=== PATIENT | female | born 1960 | race Caucasian/White ===

== ENCOUNTER 2017-09-21 19:11 | Emergency (ER) | payer OTHER ==
[~2017-09-21] VITALS: Ht 165.1 cm; Wt 113.4 kg
[2017-09-21] MEDS ORDERED: NEURONTIN300 MG PO ×2 (21:12)
[2017-09-21] MEDS ORDERED: CARBAMAZEPINE400 M1 PO ×2 (21:13)
[2017-09-21] MEDS ORDERED: LEVO-T50 MCG PO ×2 (21:14)
[2017-09-21] MEDS ORDERED: NORCO 5-325 TA1 EACH PO ×2 (21:16)
[2017-09-22] MEDS ORDERED: LIOTHYRONINE SO5 MCG PO ×2 (16:39)
== END 2017-09-21 21:30 | disposition home or self-care (01) ==
LOC: ED 19:11
DX: N13.2 Hydronephrosis with renal and ureteral calculous obstruction (principal); Z79.899 Other long term (current) drug therapy
CPT/HCPCS: 74176; 80053; 81001; 85025; 96374; 96375; 99284; J1885; J2405

== ENCOUNTER 2017-09-22 16:19 | Day surgery (SDC) | payer OTHER ==
[~2017-09-22] VITALS: Ht 165.1 cm; Wt 113.4 kg
[~2017-09-22 16:19] MED LIST: CARBAMAZEPINE400 M1 PO; LEVO-T50 MCG PO; NEURONTIN300 MG PO; NORCO 5-325 TA1 EACH PO
[2017-09-22] MEDS ORDERED: LIOTHYRONINE SO5 MCG PO ×2 (16:39)
--- NOTE | 2017-09-22 16:56 | NUR ---
RN IN ROOM. NO OTHER NEEDS AT THIS TIME.
--- NOTE | 2017-09-22 18:02 | NUR ---
PT ADMITTED. TRIED SEVERAL TIMES BY SEVERAL RN'S TO START AN IV. JUAN MORRELL EVENTUALLY GOT ONE IN. PT TOLERATED WELL. WIPE DOWN DONE. LR HANGING. SCDS IN PLACE.
--- NOTE | 2017-09-22 19:20 | NUR ---
REPORT RECEIVED FROM DENNISE JOY AND SN POWELL. IN ROOM. PT IN SURGERY AT THIS TIME.
--- NOTE | 2017-09-22 19:40 | NUR ---
09/22/171939 Georgia Waldron 193-PATIENT ARRIVED TO PACU ON 6L MASK O2 SAT 100% SR. RR EVEN. PATIENT REACTIVE EYES OPEN DOZES BACK TO SLEEP. STEPHANIE PAD TO VAGINA CDI
--- NOTE | 2017-09-22 20:30 | NUR ---
PT ARRIVES FROM PACU WITH DENNISE HALEY. PT ABLE TO TRANSFER FROM STRETCHER TO HOSPITAL BED. RATES PAIN 1-3 "BURNING", PROGRAM MANAGER SLP EXPLAINS THIS MAY OCCUR FOR A 24HRS POST OP. DENIES NAUSEA. PT IS A AND O X4, IN ROOM. PT GIVEN WARM BLANKET, ICE WATER, JELLO. VITALS STABLE AT THSI TIME 94% ON RA, BP 126/67,AFEBRILE, HR 71. RN PRIETO IN ROOM FOR POST OP ASSESSMENT, TO ADMINISTER IV TORADOL.
--- NOTE | 2017-09-22 20:54 | NUR ---
medicated wtih toradol 30mg iv c/p 07/17 pain
--- NOTE | 2017-09-22 22:49 | NUR ---
2200 - up to brp, voided, reddish colored urine. back to bed, tolerated well
--- NOTE | 2017-09-22 22:49 | NUR ---
2225 - dc paperwork instructions given to pt, medicated with 1 percocet. iv dc'd tip intact. 2x2 in place. all questions about pot op care given to pt stated undestanding
--- NOTE | 2017-09-22 22:51 | NUR ---
2249 - pt voided more reddish colored urine, DC home via w/c acompanied by and COMPUTER GRAPHIC ARTIST, dc home with written instructions Rx and appointment with for Wednesday at 11am. No c/o pain,stable for dc.
--- NOTE | 2017-09-27 07:28 | OR ---
[facility] [address] [place], [place] [address] Signed DATE OF OPERATION: 09/22/2017 SURGEON: Seferino Roper MD PREOPERATIVE DIAGNOSIS: Left ureterolithiasis. POSTOPERATIVE DIAGNOSIS: Left ureterolithiasis. PROCEDURES: 1. Diagnostic cystoscopy with left retrograde pyelogram. 2. Left flexible nephroureteroscopy with laser lithotripsy and basket extraction of stones. 3. Insertion of an indwelling left ureteral stent. ANESTHESIA: General. ESTIMATED BLOOD LOSS: Minimal. COMPLICATIONS: None. SPECIMENS: Fragments of left ureteral calculus sent to the lab for stone analysis. DRAINS: A 6 x 24 cm contour double-J ureteral stent inserted in the left ureter. INDICATION FOR PROCEDURE: Ms. Plaza is a very pleasant 57-year-old female with no previous stone history who presented to the emergency department on the evening of September 21 with a 2-3 day history of severe left flank pain. At that time, she was also experiencing nausea, but no vomiting. She denied any gross hematuria, fevers or chills. At that time, she underwent a CT scan which revealed an approximately 7 x 9 mm left proximal ureteral calculus with associated hydronephrosis. No other remaining stones were appreciated in either kidney. She presented to my clinic the following day in anticipation of taking her to the OR to perform a definitive stone extraction. She has been n.p.o. since Electronically Signed By: SEFERINO ROPER MD 09/27/17 0728 PATIENT NAME: TEO PLAZA OPERATIVE REPORT DATE OF : 58 REPORT #: [id number] PHYSICIAN: SEFERINO ROPER MD PCP: JAMISON ORDAZ MD REPORT IS CONFIDENTIAL AND NOT TO BE RELEASED WITHOUT AUTHORIZATION [facility] [address], [place] [address] Signed midnight of last night. Her urinalysis on evaluation reveals isolated trace blood. After discussion of the risks and benefits of stone extraction surgery, she has agreed to proceed. OPERATIVE FINDINGS: 1. On cystoscopy, there was no evidence of any suspicious masses, lesions, or stones. Bilateral ureteral orifices are in their normal anatomic location. 2. Left retrograde pyelogram revealed evidence of mild calyceal blunting on the left side. It also revealed that the stone had appeared to migrate proximally back into the left renal pelvis. There was otherwise no evidence of any filling defects or other abnormalities. 3. Left flexible nephroscopy was performed and approximately 7 mm stone was noted within the superior pole of the left renal pelvis. The stone was fragmented using a 270 micron fiber without difficulty. 97% of the stone fragments were successfully extracted from the left kidney using a zero tip basket. 4. A 6 x 24 cm contour double-J ureteral stent was inserted in the left ureter under direct visualization without difficulty. DESCRIPTION OF PROCEDURE: After informed consent was obtained, the patient was taken back to the operating room. She was transferred from the [facility] to the operating room table where general anesthesia was induced. She was placed in the dorsal lithotomy position and her genitalia prepped and draped in the standard sterile fashion. Using a 30-degree lens on a 22-[place] Citizen introducer, rigid cystoscope was inserted through urethra and into her bladder under direct visualization. Panendoscopic views of the bladder were then obtained including the lateral graves, floor, dome, and trigone areas. Attention was turned to the left ureteral orifice. A 0.035 Sensor wire was inserted into the left ureteral orifice and up into the left collecting system. Fluoroscopy confirmed adequate placement of the wire. Over the wire, an 04/19 ureteral access sheath was inserted into the ureter under fluoroscopic guidance. The sheath went in rather easily without any difficulty. A left retrograde pyelogram was then repeated through the internal obturator catheter present within the ureteral access sheath. Once that was performed, the inner obturator was then removed and the flexible ureteroscope was then inserted through the sheath and into the left renal pelvis. A complete flexible nephroscopy was then performed. The 7 mm stone was located in the upper pole of the left kidney. The stone was fragmented with the holmium laser at an appropriate energy level for the renal pelvis. The stone fragmented easily and the stone fragments were then extracted in their entirety from the left renal pelvis using the Zero tip basket. Once I was satisfied that all the stone fragments had been removed, I repeated a left retrograde pyelogram and I did not appreciate any residual fragments within the kidney. I then inserted a Sensor wire through the ureteral access sheath and then removed the sheath fully intact. Over the wire, a 6 x 24 cm contour double-J ureteral stent was inserted in the left ureter under Electronically Signed By: SEFERINO ROPER MD 09/27/17 0728 PATIENT NAME: TEO PLAZA OPERATIVE REPORT DATE OF : 58 REPORT #: [id number] PHYSICIAN: SEFERINO ROPER MD PCP: JAMISON ORDAZ MD REPORT IS CONFIDENTIAL AND NOT TO BE RELEASED WITHOUT AUTHORIZATION [address] [address] Signed direct visualization without difficulty. Once the Sensor wire was pulled, an adequate proximal coil was seen within the left renal pelvis along with an adequate distal coil within the bladder. The patient's bladder was then drained and the cystoscope was removed. The procedure was then terminated. The patient tolerated the procedure well without any complication. She will now be transferred to the postanesthesia care unit in stable condition. DISPOSITION: I discussed the details of today's procedure with the patient's and answered all of his questions. I told him that the stone fragments will be sent to the lab for stone analysis this evening. She will be discharged later this evening in stable condition in the company of her . She was given prescriptions for Percocet 5/325 dispense #20 as needed for pain, along with oxybutynin 5 mg p.o. b.i.d. p.r.n. incontinence, and Bactrim double strength for a total of 7 days. She will be scheduled to return to clinic in approximately a week to undergo cystoscopy with left ureteral stent extraction. Hopefully at that time, the results of her stone analysis will be ready to discuss. MD ABEBE Bedoya/JULIO /[id number] Copies: ~ Electronically Signed By: SEFERINO ROPER MD 09/27/17 0728 PATIENT NAME: TEO PLAZA RECORD #: [id number] OPERATIVE REPORT DATE OF : 58 REPORT #: [id number] PHYSICIAN: SEFERINO ROPER MD PCP: JAMISON ORDAZ MD REPORT IS CONFIDENTIAL AND NOT TO BE RELEASED WITHOUT AUTHORIZATION
== END 2017-09-22 22:50 | disposition home or self-care (01) ==
LOC: OPS 16:19 → MS 16:19 → DS 18:00 → OPS 22:50
PROVIDERS: Urology
PROC: 0T778DZ Dilation of Left Ureter with Intraluminal Device, Via Natural or Artificial Opening Endoscopic (ICD-10-PCS; principal; 2017-09-22 18:00)
PROC: 0TC48ZZ Extirpation of Matter from Left Kidney Pelvis, Via Natural or Artificial Opening Endoscopic (ICD-10-PCS; 2017-09-22 18:00)
PROC: BT1FYZZ Fluoroscopy of Left Kidney, Ureter and Bladder using Other Contrast (ICD-10-PCS; 2017-09-22 18:00)
DX: N13.2 Hydronephrosis with renal and ureteral calculous obstruction (principal); Z79.899 Other long term (current) drug therapy
CPT/HCPCS: 00918; 74450; 82365; C2617; J0330; J0696; J1100; J1885; J2250; J2405; J2704; J3010; J7120; Q9967

== ENCOUNTER 2017-10-19 05:45 | Inpatient (IN) | payer OTHER ==
--- NOTE | 2017-10-11 10:00 | NUR ---
PATIENT HERE TODAY WITH HER MAC FOR PREADMISSION APPOINTMENT. SHE IS SCHEDULED FOR A RIGHT TOTAL KNEE REPLACEMENT ON 10/19/17. SHE HAS NOT YET HAD A PHYSICAL THERAPY APPOINTMENT AT THE [facility] BUT WOULD LIKE TO HAVE PHYSICAL THERAPY SET UP FOR POST OP. THIS RN WILL CONTACT THE [facility] PHYSICAL THERAPY DEPT AND REQUEST THEY CONTACT THE PATIENT TO SET UP A PREOP APPOINTMENT. HER WILL BE TRANSPORTING HER HOME WHEN SHE IS DISCHARGED AND TO APPOINTMENTS. THEY FOUR STEPS INTO THE HOME WITH A HAND RAIL AND NO STEPS ON THE MAIN LEVEL. THEY DO HAVE A DOWNSTAIRS BUT SHE DOES NOT HAVE TO USE IT. SHE STATES SHE HAS A WALK IN SHOWER WITH BUILT IN SEATS AND A HAND HELD SHOWER HEAD. SHE IS GOING TO LOOK AT HOME AND SEE WHAT KIND OF WALKER THEY HAVE. THIS INFORMATION WILL BE SENT TO DR MIGUEL OFFICE AND UT PLANNING FOR FUTHER FOLLOW UP.
[~2017-10-19] VITALS: Ht 165.1 cm; Wt 111.1 kg
[~2017-10-19 05:45] MED LIST changes: +LIOTHYRONINE SO5 MCG PO
--- NOTE | 2017-10-19 09:20 | NUR ---
10/19/17 0919 Georgia Waldron 0911-PATIENT ARRIVED TO PACU ON RA O2 SAT 93% PATIENT DROWSY AROUSABLE TO VERBAL STIMULI RR EVEN DENIES PAIN OR NAUSEA. SPINAL LEVEL AT L1. RIGHT FOOT PALPABLE PULSE GOOD CAP REFILL AND WARMTH. DRESSING CDI.
--- NOTE | 2017-10-19 10:10 | NUR ---
PT ARRIVED FROM PACU AT 1010. REPORT TAKEN FROM DENNISE HALEY. PT DENIES PAIN AND NAUSEA AT THIS TIME. PT TOLERATING CRACKERS AND FLUIDS. PT REMAINS ON 2L O2. PT TAUGHT TO USE IS AND DEMONSTARTES UNDERSTANDING. ASSESSMENT DONE. DRESSING CDI. PT AND FAMILY REQUEST CRYO CUFF. ORDER WRITTEN BY . CRYO CUFF ATTACHED PER PROTOCOL. SCDS IN PLACE. AT BEDSIDE. CALL LIGHT WITHIN REACH.
[2017-10-19] MEDS ORDERED: OXYBUTYNIN CHLOR5 MG PO (10:21)
--- NOTE | 2017-10-19 11:08 | OR ---
[facility] [address] [facility] [place], [place] [address] Signed DATE OF OPERATION: 10/19/2017 SURGEON: Chucky Oreilly MD PREOPERATIVE DIAGNOSIS: End-stage osteoarthritis, right knee with valgus collapse. POSTOPERATIVE DIAGNOSIS: End-stage osteoarthritis, right knee with valgus collapse. PROCEDURE: Right total knee arthroplasty. IMPLANTS: Attune size 6 fixed bearing tibial tray with a 7 mm PS poly, 35 mm all-poly patella and a size 6 standard PS femoral component. ANESTHESIA: Spinal with sedation. TOURNIQUET TIME: 90 minutes. SPECIMENS AND COMPLICATIONS: There were no specimens or complications. WHAT WAS DONE: The patient was taken to the operating room. After anesthesia was induced and the patient sedated, the right lower extremity was positioned, prepped and draped in a routine sterile fashion. The leg was exsanguinated with an Esmarch bandage. Pneumatic tourniquet was inflated to 300 mmHg pressure. A straight anterior approach was made to the knee centered over the patella. Skin was divided sharply. Subcutaneous tissue was bluntly spread and hemostasis was achieved with electrocautery. The medial flap was gently developed and an anteromedial arthrotomy performed. The patella was turned on edge and about 10 mm trimmed off the posterior aspect of the patella. We then made drill holes for a 35 mm all-poly patella. We trial fit the patella and discovered we had reconstituted the prepatellar resection height of 24 mm. We then removed the patellar trial, put the patella in the lateral recess and gently flexed the knee. Using the [employer] navigation system, we digitized the distal femur and then resected it at neutral varus-valgus about 3 degrees of flexion and removing about 11 mm off the medial Electronically Signed By: CHUCKY OREILLY MD 10/19/17 1108 PATIENT NAME: TEO HALL OPERATIVE REPORT DATE OF : 58 REPORT #: [id number] PHYSICIAN: CHUCKY OREILLY MD PCP: JAMISON ORDAZ MD REPORT IS CONFIDENTIAL AND NOT TO BE RELEASED WITHOUT AUTHORIZATION [facility] [address] [place], [place] [address] Signed side. The distal femoral resection was then accomplished and the wafers removed. We then transitioned the navigation system at the proximal tibia and again following the prompts used the [employer] navigation system to digitized the proximal tibia. We then resected the proximal tibia in neutral varus valgus about 3 degrees of posterior slope per the Attune surgical protocol and removing about 5 mm off the medial side. The tibial osteotomy was then performed and the tibial tray was removed. The femoral sizing block was then placed on the distal femur and it sized to a size 6. The size 6 cutting block was placed on the distal femur in 3 degrees of external rotation and anterior, posterior, and chamfer cuts were made. The notch cutting block was placed and the notch was cut out for the PS implant. Lamina vocational nurse lvn was then introduced into the joint gently distracted it. We removed the remnants of the medial lateral meniscus ACL, PCL. We then placed the femoral trial on the distal femur and drilled the lug holes. We trialed the proximal tibia with a 5 and then with a 6 tibial tray, which gave us a little bit better coverage. We then trialed it with a 5 mm poly and had excellent extension and good balance in extension with just a little bit of laxity in flexion. We marked the rotational alignment of the tibial tray and then secured it and prepared the proximal tibia with a standard broach and reamer. We then used a jet lavage to copiously irrigate and then dried the knee. The final components were then cemented into place and the knee was held in full extension with the [address] We then allowed the cement to cure. Marginal cement of heights was then sought and removed. We then retrialed the knee with a 6 mm and with a 7 mm poly, and improved our flexion stability and did not compromise our extension. The knee was copiously irrigated. The final poly was snap-fit to the tray. The knee was then cycled and copiously irrigated with jet lavage. Routine wound closure was accomplished. A sterile dressing was applied. The patient was awakened and taken to the recovery room where she arrived in stable condition. Counts were correct and antibiotic protocols were followed. Chucky Oreilly MD WFB/MODL /[id number] Copies: Electronically Signed By: CHUCKY OREILLY MD 10/19/17 1108 PATIENT NAME: TEO HALL OPERATIVE REPORT DATE OF : 58 REPORT #: [id number] PHYSICIAN: CHUCKY OREILLY MD PCP: JAMISON ORDAZ MD REPORT IS CONFIDENTIAL AND NOT TO BE RELEASED WITHOUT AUTHORIZATION [place] [address] Signed ~ Electronically Signed By: CHUCKY OREILLY MD 10/19/17 1108 PATIENT NAME: TEO HALL OPERATIVE REPORT DATE OF : 58 REPORT #: [id number] PHYSICIAN: CHUCKY OREILLY MD PCP: JAMISON ORDAZ MD REPORT IS CONFIDENTIAL AND NOT TO BE RELEASED WITHOUT AUTHORIZATION
--- NOTE | 2017-10-19 11:55 | NUR ---
RN IN ROOM. FAMILY MEMBERS IN ROOM.
--- NOTE | 2017-10-19 11:57 | NUR ---
MEDICATIONS DUE. THIS RN TO BEDSIDE. PT RESTING WITH EYES CLOSED, RR = 16 BPM. O2 AT 2L NC IN PLACE. CRYO CUFF IN PLACE. AT BEDSIDE. VITALS TAKEN. MEDIATIONS GIVEN ORDERED. FOCUSED ASSESSMENT DONE. BED RAILS UP. CALL LIGHT WITHIN REACH. NO REQUESTS OR COMPLAINTS AT THIS TIME.
--- NOTE | 2017-10-19 13:14 | NUR ---
VITALS DUE. THIS RN TO BEDSIDE. PT RESTING WITH EYES CLOSED, RR = 16 BPM. PT AWAKENS TO VOICE. PT WEANED TO ROOM AIR. MAINTAINING O2 SATURATIONS ABOVE 92% ON ROOM AIR. VITALS TAKEN. PT DRIFTS BACK TO SLEEP. AT BEDSIDE. CALL LIGHT WITHIN REACH. BED RAILS UP.
--- NOTE | 2017-10-19 13:30 | NUR ---
THIS MIME ARTIST AND RN ASSISTED PATIENT TO THE BEDSIDE COMMODE. 2 PERSON WITH FWW. PATIENT VOIDED. PATIENT NOW SITTING UP IN BED. CALL LIGHT WITHIN REACH. FRESH ICE WATER. NO OTHER NEEDS AT THIS TIME.
--- NOTE | 2017-10-19 14:41 | NUR ---
MED REC COMPLETE
--- NOTE | 2017-10-19 15:20 | NUR ---
PT BACK FROM PHYSICAL THERAPY. PT DENIES PAIN AND NAUSEA. ABX GIVEN (SEE MAR). PT RESTING IN BED. NO REQUESTS OR COMPLAINTS. WATER REFILLED AT BEDSIDE. BED RAILS UP. CRYO CUFF AND SCDS IN PLACE. CALL LIGHT WITHIN REACH.
--- NOTE | 2017-10-19 16:29 | NUR ---
AFTERNOON ASSESSMENT DUE. THIS RN TO BEDSIDE. PT RESTING IN BED VISITING WITH . ASSESSMENT DONE. DRESSING CDI. PT DENIES PAIN AND NAUSEA. CRYO CUFF IN PLACE. PT ENCOURAGED TO WORK ON INCENTIVE SPIROMETER, PT DEMONSTRATES PROPER USE. PT STATES SHE HAS NO REQUESTS OR COMPLAINTS AT THIS TIME. CALL LIGHT WITHIN REACH. BED RAILS UP.
--- NOTE | 2017-10-19 17:19 | NUR ---
PT ARRIVED TODAY AT 1010 POST OP R TKA. PT ADVANED TO REGULAR DIET. WORKED WITH PHYSICAL THERAPY TODAY, AMBULATING AROUND UNIT AND BACK TO BED. PT WEANED TO ROOM AIR, INCENTIVE SPIROMETER AT BEDSIDE. LR INFUSING AT 125ML/HR. PT REQUESTED CRYO CUFF, ORDER PLACED, CRYO CUFF ON. DRESSING CDI. NO PAIN OR NAUSEA REPORTED THIS SHIFT. PT USING CALL LIGHT APPROPRIATLY.
--- NOTE | 2017-10-19 18:23 | NUR ---
MEDICATIONS DUE. THIS RN TO BEDSIDE. PT RESTING AND WATCHING TV. MEDICATIONS GIVEN ORDERED. PIV SALINE LOCKED. PIV FLUIDS STOPPED (PHARAMCY NOTIFED). PT CONTINUES WATCHING TV. NO REQUESTS OR COMPLAINTS AT THIS TIME. CALL LIGHT WITHIN REACH.
--- NOTE | 2017-10-19 19:21 | NUR ---
IN ROOM FOR REPORT, PT IS AWAKE IN BED WITH IN THE ROOM. SHE DENIES PAIN OR FURTHER NEEDS AT THIS TIME.
--- NOTE | 2017-10-19 19:57 | NUR ---
PATIENT SITTING UP IN BED. IN ROOM. GARBAGE EMPTIED. ICE IN CRYO. FRESH ICE WATER. CALL LIGHT WITHIN REACH. NO OTHER NEEDS AT THIS TIME.
--- NOTE | 2017-10-19 21:04 | NUR ---
PT IS AWAKE IN BED, HELPED HER TO THE RESTROOM. SHE DENIES PAIN AT THIS TIME. DRESSING IS CDI. PT STATES NUMBESS HAS SUBSIDED. CONTINUOUS PULSEOX IS IN PLACE AND PT IS ON RA. SHE DENIES NEEDS AT THIS TIME.
--- NOTE | 2017-10-19 22:39 | NUR ---
V/S AND I/O DONE. PATIENT STATED FEELING HER LEG PAIN, AND WAS TOLD TO LET NURSE KNOW SO PAIN WILL NOT GET WORST. DENNISE DUDLEY NOTIFIED.
--- NOTE | 2017-10-19 23:24 | NUR ---
ADMINISTERED ANCEF AND OXYCODONE 5MG, PT REPORTS PAIN AT 4/10 AT THIS TIME. PT DENIES FURTHER NEEDS.
--- NOTE | 2017-10-20 01:02 | NUR ---
WOKE PT TO GIVE MEDICATIONS. SHE STATES SHE HAS NO PAIN AT THIS TIME AND DENIES FURTHER NEEDS.
--- NOTE | 2017-10-20 02:51 | NUR ---
ASSISTED PATIENT TO THE BATHROOM AND BACK TO BED USING WALKER. PATIENT VOIDED 100ML. CRYO CUFF AND WATER REFILLED. CALL LIGHT WITHIN REACH. NO OTHER NEEDS AT THE MOMENT.
--- NOTE | 2017-10-20 03:55 | NUR ---
PT REPORTS PAIN 4/10 AT THIS TIME. OXYCODONE GIVEN, PT DENIES FURTHER NEEDS AT THIS TIME.
--- NOTE | 2017-10-20 06:41 | NUR ---
IN PT'S ROOM TO ADMINISTER MEDICATIONS. PT STATES SHE HAS NO PAIN AT THIS TIME. AND SHE DENIES NEEDS. CALL LIGHT IS WITHIN REACH.
--- NOTE | 2017-10-20 06:42 | NUR ---
PT IS A 1PA WITH FWW AND HER IV IS SL. SHE TOOK OXYCODONE 2 TIMES THROUGH THE NIGHT FOR 4/10 PAIN WHICH IS WELL CONTROLLED AT THIS TIME WITH 5MG DOSE. SHE IS TOLERATING A REGULAR DIET AND IS VOIDING QS.
--- NOTE | 2017-10-20 07:15 | NUR ---
RECEIVED REPORT FROM DENNISE DING. PT ASLEEP WITH ASLEEP ON COUCH. APPEARS COMFORTABLE.
--- NOTE | 2017-10-20 10:14 | NUR ---
AM MEDS ADMINISTERED. PT WORKING WITH BRITTNY FOR PHYSICAL THERAPY.
--- NOTE | 2017-10-20 11:03 | NUR ---
PT BACK FROM PHYSICAL THERAPY. SITTING UP IN BED WITH AT BEDSIDE. RATES PAIN 4/10, BUT STATES IT IS TOLERABLE WHEN RESTING. BRITTNY REPORTED PT DID WILL WITH PHYSICAL THERAPY. DENIES OTHER NEEDS AT THIS TIME.
--- NOTE | 2017-10-20 12:13 | NUR ---
PT RESTING IN BED WITH EYES CLOSED. REPORTS PAIN 6/10 WITH MOVEMENT. GIVEN 10 MG OXY. CRYO REFILLED. PT APPEARS COMFORTABLE. DENIES OTHER NEEDS.
--- NOTE | 2017-10-20 14:17 | NUR ---
TORADOL GIVEN. PT RATES PAIN 2-6 DEPENDING ON ACTIVITY LEVEL. UP TO BATHROOM 1PA W/FWW. ATTENDS AND PAD CHANGED. PT MOVES WELL, UNDERSTANDS NEEDS AND EXERCISES. TO WORK WITH PHYSICAL THERAPY THIS AFTERNOON. IN ROOM.
--- NOTE | 2017-10-20 15:15 | NUR ---
PT WORKED WITH BRITTNY FOR PHYSICAL THERAPY. CPM IN PLACE.
--- NOTE | 2017-10-20 16:31 | NUR ---
PT ASLEEP. CPM IN PLACE. AT BEDSIDE.
--- NOTE | 2017-10-20 18:11 | NUR ---
PT DOING WELL. TOLERATING REGULAR DIET. OXY X3, WITH SCHD. TYLENOL AND TORADOL. CRYO AND CPM. WORKED WITH PHYSICAL THERAPY X2. DOES WELL AND IS ABLE TO SELF MANAGE CARE. SL. UOP QS, BUT NEEDS REMINDERS TO USE BATHROOM. OREILLY TO COME IN TOMORROW AND DO STEROID SHOT IN LEFT KNEE. PLAN TO DC TOMORROW TO HOME WITH .
--- NOTE | 2017-10-20 20:00 | NUR ---
RECEIVED REPOR AT 1900. FOUND PT IN BED WATCHING TV. PT DENIED PAIN AT THAT TIME. PT HAD NO OTHER NEEDS.
--- NOTE | 2017-10-20 20:21 | NUR ---
ROUNDED CHARGE. PATIENT IS RESTING IN BED. BROTHER AT THE BEDSIDE. PATIENT DENIES ANY PAIN. NO COMMETS, QUESTION, OR CONCERNS. CALL LIGHT IN REACH.
--- NOTE | 2017-10-20 22:00 | NUR ---
V/S ARE WDL. DRESSING ON RIGHT KNEE IS C/D/I. KRYO TO KNEE. PAIN IS WELL CONTROLLED SO FAR. ALL LOBES ARE CLEAR, ABD SOUNDS ARE PRESENT. PEDIS PULSES +2. SLIGHT EDEMA ON RIGHT KNEE AND FEET. NO NEW ISSUES NOTED.
--- NOTE | 2017-10-21 | NUR ---
PT IS SLEEPING.
--- NOTE | 2017-10-21 02:00 | NUR ---
PT IS SLEEPING.
--- NOTE | 2017-10-21 04:00 | NUR ---
PT IS SLEEPING AT THIS TIME.
--- NOTE | 2017-10-21 05:25 | NUR ---
V/S SO FAR ARE WDL. PAIN IS WELL CONTROLLED WITH PRN PAIN MEDS AVAILABLE. DRESSING ON RIGHT KNEE IS C/D/I. THERE IS MINMAL EDEMA TO FOOT. KRYO IN USE. FOOT PUMPS IN USE, HEEL PROTECTORS IN USE. PT IS MOVING WELL. ALL LOBES ARE CLEAR, ABD SOUNDS ARE PRESENT. NO NEW CONCERNS AT THIS TIME.
--- NOTE | 2017-10-21 07:15 | NUR ---
REPORT RECEIVED FROM DENNISE KEENE. PT ASLEEP.
--- NOTE | 2017-10-21 08:47 | NUR ---
PT SITTING UP IN BED. RATES PAIN 1-3/10 AND FEELS IT IS WELL CONTROLLED. UP TO BATHROOM WITH FWW. ABLE TO GET SELF OUT OF BED. CRYO IN PLACE, FOOT PUMPS ON. CALL LIGHT IN REACH. DENIES OTHER NEEDS AT THIS TIME.
--- NOTE | 2017-10-21 10:59 | NUR ---
PT ASLEEP. CPM IN PLACE. OUT PICKING UP PRESCRIPTIONS. PT DECLINED PAIN MEDS THIS AM. READY TO DC WHEN RETURNS.
[2017-10-21] MEDS ORDERED: DILAUDID4 MG PO (11:48)
[2017-10-21] MEDS ORDERED: OXYCODONE HCL10 MG PO (11:49)
[2017-10-21] MEDS ORDERED: XARELTO10 MG PO (11:50)
[2017-10-21] MEDS ORDERED: TYLENOL EXTRA500 MG PO (11:51)
--- NOTE | 2017-10-21 12:45 | NUR ---
PT GIVEN DC INSTRUCTIONS ON S/S OF INFECTION, HOME CARE, AND FOLLOW-UP. VERABLIZED UNDERSTANDING. ALL QUESTIONS ANSWERED. IV REMOVED WNL. VS STABLE. PAIN WELL CONTROLLED. ALL BELONGINGS RETURNED ON CART OUT TO CAR WITH . PT OUT IN WHEELCHAIR WITH LYNNE IZQUIERDO.
--- NOTE | 2017-10-22 11:47 | NUR ---
FAXED CHART NOTES TO [facility] OP PT, INCLUDING FACESHEET, ORDER, H AND P, OP NOTE, PROG NOTES, PT EVAL AND NOTES. RECIEVED FAX CONFIRMATION. CALLED [facility] OP PT AND LET THEM KNOW THE FAX WAS COMING.
--- NOTE | 2017-10-26 07:11 | DS ---
[facility] [address] [place], [place] [address] Signed ADMISSION DATE: 10/19/2017 DISCHARGE DATE: 10/21/2017 FINAL DIAGNOSIS: At the time of discharge end-stage osteoarthritis right knee. PROCEDURE: Right total knee arthroplasty. HISTORY OF PRESENT ILLNESS: The patient is a 57-year-old female with severe bilateral osteoarthritis to her knees. She reached a point where she no longer got any relief from conservative modalities on the right knee and presented for elective total knee replacement. HOSPITAL COURSE: The patient was admitted to Day Surgery on the . She was taken to the operating room, where under spinal anesthesia she underwent a total knee replacement on the right using Attune total knee system with a size 7 PS femur, and size 7 tibial tray, a 7 mm PS poly, and a 35 mm all-poly patella. Postoperatively, the patient has done extraordinarily well. On the second postoperative day she is independently ambulatory weightbearing as tolerated on the right. Because of osteoarthritis on the left she did get a steroid/local anesthetic injection into the left knee. At the time of discharge, she was actually ambulating well with her walker. Her incision was clean, dry, hemoglobin stable at 11-1/2 x2 days. Her calves are negative. Her neurovascular exam was unremarkable. We are going to send her home alternating Dilaudid and oxy for pain management. We will have her continue on Xarelto 10 mg one once a day for DVT prophylaxis. We will have her follow up in four weeks. We have arranged for her to take her CPM machine and her cryo cuff home with her and get started in Physical Therapy on Wednesday. MD JASON Curiel/JULIO /[id number] Electronically Signed By: VINICIO OREILLY MD 10/26/17 0711 PATIENT NAME: TEO HALL DISCHARGE SUMMARY DATE OF : 58 REPORT #: [id number] PHYSICIAN: VINICIO OREILLY MD PCP: JAMISON ORDAZ MD REPORT IS CONFIDENTIAL AND NOT TO BE RELEASED WITHOUT AUTHORIZATION [address] [place], [place] [address] Signed Copies: ~ Electronically Signed By: VINICIO OREILLY MD 10/26/17 0711 PATIENT NAME: TEO HALL DISCHARGE SUMMARY DATE OF : 58 REPORT #: [id number] PHYSICIAN: VINICIO OREILLY MD PCP: JAMISON ORDAZ MD REPORT IS CONFIDENTIAL AND NOT TO BE RELEASED WITHOUT AUTHORIZATION
== END 2017-10-21 12:40 | disposition home or self-care (01) | DRG 470 ==
LOC: DS 05:45 → MS 06:45 → EDSTATUS 06:45 → MS 07:07 → DS 09:45 → MS 10-21 12:40
PROVIDERS: ADMIT Orthopaedic Surgery
PROC: 8E0YXBZ Computer Assisted Procedure of Lower Extremity (ICD-10-PCS; 2017-10-19)
PROC: 0SRC0J9 Replacement of Right Knee Joint with Synthetic Substitute, Cemented, Open Approach (ICD-10-PCS; principal; 2017-10-19 06:45)
DX: M17.11 Unilateral primary osteoarthritis, right knee (principal); M21.061 Valgus deformity, not elsewhere classified, right knee; E03.9 Hypothyroidism, unspecified; Z79.899 Other long term (current) drug therapy
CPT/HCPCS: 01402; 36415; 73560; 80048; 85025; 97110; 97116; 97161; C1713; C1776; G8978; G8979; J0690; J1100; J1885; J2250; J2274; J2704; J3010; J7120

== ENCOUNTER 2022-05-22 11:18 | Inpatient (IN) | payer OTHER ==
[~2022-05-22] VITALS: Ht 165.1 cm; Wt 116.8 kg
[~2022-05-22 11:18] MED LIST changes: +DILAUDID4 MG PO; +OXYBUTYNIN CHLOR5 MG PO; +OXYCODONE HCL10 MG PO; +TYLENOL EXTRA500 MG PO; +XARELTO10 MG PO
--- NOTE | 2022-05-22 15:00 | NUR ---
PT ARRIVES TO FLOOR VIA STRETCHER BY THIS RN - ACCOMPANIED BY . PT AAOX4. CURRENTLY ON 6L 02 VIA NC. PT IN SINUS RHYTHM WHEN CONNECTED TO ICU MONITOR. ADMISSION ASSESSMENT COMPLETE. PT ORIENTED TO ROOM AND CALL LIGHT. AT SIDE.
--- NOTE | 2022-05-22 15:30 | NUR ---
MD NOTIFIED OF PT IN SINUS RHYTHM, RATE AND BP. VERBAL ORDERS RECEIVED TO INITIATE DILT DRIP TITRATION TO 0 OVER COURSE OF 1 HOUR. PT UPDATED ON POC.
--- NOTE | 2022-05-22 16:06 | NUR ---
REMAINS IN SINUS RHYTHM - RATE 84. DILT DRIP TITRATED DOWN TO 4.5. CURRENT BP 113/60 (75).
[2022-05-22] MEDS ORDERED: LIOTHYRONINE SO5 MCG PO (17:04)
[2022-05-22] MEDS ORDERED: OXYBUTYNIN CHLO10 MG PO (17:05)
--- NOTE | 2022-05-22 17:15 | NUR ---
scheduled meds administered. 3 units insulin required for coverage. pt reports poor appetite with dinner served. 02 titrated to 4l via NC. remains in sinus rhythm - rate 95. pt up to chair. call light in reach. sputum sample obtained and sent to lab.
--- NOTE | 2022-05-22 17:57 | NUR ---
dilt drip dc'd - pt remains in sinus rhythm and rates in 80's.
--- NOTE | 2022-05-22 18:43 | NUR ---
PT AMBULATES TO BATHROOM WITH RN ASSISTANCE. MODERATE SOB WITH ACTIVITY, 02 TITRATED TO 5L. HR REMAINS SINUS, 98. VANCO ABX INFUSING INTO LEFT IV SITE, WNL. PT BACK TO BED WITH TABLE AND CALL LIGHT IN REACH.
--- NOTE | 2022-05-22 19:30 | NUR ---
SHIFT REPORT RECEIVED. PATIENT RESTING IN BED WITH EYES CLOSED. CALL LIGHT IN REACH. VS STABLE.
--- NOTE | 2022-05-22 20:30 | NUR ---
PATIENT ASSISTED UP TO THE RECLINER, REPORTS SHOULDER PAIN AND WORSE WHEN LAYING IN BED. PATIENT IS DROWSY BUT WAKES EASILY AND IS ORIENTED. DENIES FEELING SOB AT REST, BUT HAS BEEN COUGHING AND FEELING SOB WITH THAT. TOLERATING 4L NC. LUNG SOUNDS ARE COARSE THROUGHOUT. IV ABX INFUSING; FREQUENT DISTAL OCCLUSIONS DUE TO PLACEMENT. FLUSHED EASILY. SCHEDULED AND PRN MEDS PROVIDED PER ORDER. OFFERED HOT/COLD PACK FOR SHOULDER; PATIENT DECLINED. VS STABLE. ORAL TEMP WNL. CALL LIGHT IN REACH.
--- NOTE | 2022-05-22 21:45 | NUR ---
PATIENT CONTINUES TO COUGH FREQUENTLY AND FEELS LIKE SHE MIGHT THROW UP AT TIMES DUE TO THIS. PATIENT HAS RECEIVED PRN COUGH MEDS. OFFERED WARM TEA OR BROTH TO SOOTHE HER THROAT. PATIENT DECLINES. SITTING UP IN THE RECLINER. PATIENT HAS EMESIS BAG AND [place]KINS. CURRENTLY ON 5L NC; RR 18-22.
--- NOTE | 2022-05-23 00:22 | NUR ---
PATIENT APPEARED TO BE SLEEPING WHEN RN ENTERED THE ROOM. WOKE EASILY TO VOICE. BP CUFF REPOSITIONED. VS STABLE. TITRATED TO 3L NC. PATIENT CONTINUES TO HAVE A DRY COUGH. DENIED ANY NEEDS. CALL LIGHT IN REACH.
--- NOTE | 2022-05-23 02:30 | NUR ---
PATIENT PROVIDED WITH SCHEDULED MEDS. ALERTS TO VOICE EASILY. REPORTS SLEEPING OFF AND ON. CONTINUES TO HAVE DRY COUGH. TOLERATING ROOM AIR. VS STABLE. HR REGULAR SINUS RHYTHM; RATE 70'S.
--- NOTE | 2022-05-23 05:00 | NUR ---
PATIENT UP TO THE BATHROOM. VOIDED 700 MLS PORSCHE COLORED URINE. PATIENT TOLERATED ACTIVITY WELL BUT DESAT TO THE MID 80'S ON RA. PLACED 2L NC. PATIENT REPORTS FEELING BETTER THIS MORNING. OCCATIONAL COUGH WITH SMALL AMOUNT OF SPUTUM NOTED. VS STABLE. HR CONTROLED AND REMAINS IN SINUS.
--- NOTE | 2022-05-23 07:30 | NUR ---
REPORT RECIEVED. PATIENT SITTING UP IN CHAIR. O2 AT [address]
--- NOTE | 2022-05-23 08:00 | NUR ---
ASSESSMENT DONE. DENIES PAIN. STATES SHE IS FEELING BETTER TODAY. HAS PRODUCTIVE COUGH OF THICK YELLOW SPUTUM. ACCUCHECK 96, NO INSULIN GIVEN. BREAKFAST GIVEN.
--- NOTE | 2022-05-23 08:13 | NUR ---
GEMMA ELENA ORDERED.
--- NOTE | 2022-05-23 09:30 | NUR ---
TOOK BREAKFAST FAIR, TO BR TO VOID. THEN TO BED, PATIENT NEEDS A POSITION CHANGE. PATIENT IS IN ROOM. IS STABLE ON FEET.
--- NOTE | 2022-05-23 10:51 | NUR ---
RESTING IN BED. CONTINUES WITH PRODUCTIVE COUGH OF THICK YELLOW SPUTUM. IS IN ROOM. MONITOR SHOWS NSR. DENIES PAIN.
--- NOTE | 2022-05-23 11:15 | NUR ---
C/O LEFT SIDE PAIN, INCREASE WITH COUGH. COUNTER PRESSURE APPLIED. TESSALON PERLES, ROBITUSSION, AND TYLENOL GIVEN. SITTING UP IN BED.
--- NOTE | 2022-05-23 13:00 | NUR ---
TOOK LUNCH FAIR. DR. BAILEY HERE TO SEE PATIENT. PATIENT WILL BE TRANSFERRED TO MEDICAL FLOOR.
--- NOTE | 2022-05-23 15:11 | NUR ---
MED REC COMPLETE
--- NOTE | 2022-05-23 15:15 | NUR ---
REPORT TO MED-SURG.
--- NOTE | 2022-05-23 15:15 | NUR ---
bedside report received from bren staples in [facility]. pt to be [place]ported to [place] [id number] by charge nurse Su.
--- NOTE | 2022-05-23 15:23 | NUR ---
PT ARRIVED TO FLOOR VIA BED. TRANSFERED ON RA. SATURATIONS 98% ON RA. RR EQUAL AND NONLABORED. AT BEDISDE. PT IS ALERT AND ORIENTED. DISCUSSED PLAN OF CARE. VITALS TAKEN AND STABLE. DENIES NEEDS AT THIS TIME.
--- NOTE | 2022-05-23 15:26 | NUR ---
TO MED-SURG VIA BED.
--- NOTE | 2022-05-23 15:26 | NUR ---
ALL PERSONAL BELONGINGS ASSESSED AND VERIFIED BY PT TO BE BROUGHT FROM CCU.
--- NOTE | 2022-05-23 15:45 | NUR ---
based on patient's intake vitals signs per Su RN, room air sats 98%, o2 left off for now, will monitor pt.
--- NOTE | 2022-05-23 16:21 | NUR ---
pt asked to use restroom to void, was able to ambulate with standby assist to bathroom, urinated in hat. 700 ml output. pt would like to sit on "something other than the bed please" allowed pt to sit on couch at this time. call light is within reach. would like something for cough at this time
--- NOTE | 2022-05-23 16:41 | NUR ---
PT ASSESSMENT COMPLETE. PT REQUESTING TO SIT IN RECLINER. HAS DONE SO ON HER OWN WITHOUT DIFFICULTY, IS A LITTLE SLOW, STANDBY ASSIST. DOES NOT APPEAR SHORT OF BREATH AND DENIES SO. DISCUSSED PAIN WITH PT AND SHE IS REPORTING PAIN IN HER SHOULDERS SOMETIMES MORE FROM HAVING BEEN COUGHING, WANTS SOME COUGH MEDICINE, GAVE HER ROBITUSSIN AC PER PRN ORDER ON EMAR, TOO SOON FOR THE TESSLON, ALSO GAVE 500 MG PO TYLENOL . APPLIED WARM BLANKET TO PT WHILE SHE IS SITTING IN HER CHAIR. CALL LIGHT IN REACH, WATCHING TV.
--- NOTE | 2022-05-23 19:02 | EKG ---
[facility] [address] [facility] [place] [address] Signed Atrial fibrillation with rapid ventricular response Incomplete right bundle branch block Nonspecific ST abnormality Abnormal ECG When compared with ECG of 11-OCT-2017 09:43, Atrial fibrillation has replaced Sinus rhythm Vent. rate has increased BY [address] now depressed in Inferior leads ST now depressed in Anterolateral leads Confirmed by VINCE BAILEY MD ([id number]) on 05/23/2022 7:02:03 PM Electronically Signed By: VINCE BAILEY MD 05/23/221901 PATIENT NAME: TEO HALL Electrocardiogram DATE OF : 58 PHYSICIAN: VINCE BAILEY MD REPORT #: [id number] REPORT IS CONFIDENTIAL AND NOT TO BE RELEASED WITHOUT AUTHORIZATION
--- NOTE | 2022-05-23 19:23 | NUR ---
RECEIVED REPORT FROM DAY SHIFT RN. PATIENT IS RESTING IN RECLINER. NO NEEDS NOTED. CALL LIGHT IN REACH.
--- NOTE | 2022-05-23 20:15 | NUR ---
PATIENT ASSESMENT COMPLETED. PATIENTS VITALS TAKEN AND RECORDED. PATIENT ASSISTED TO THE BR A SBA. PATIENT ABLE TO VOID. PATIENT IS BACK IN RECLINER RESTING. PATIENTS PM MEDS GIVEN PER ORDER. PATIENT REPORTS COUGH, PRN MEDS GIVEN PER ORDER. PATIENTS IV INFUSING ABX AT THIS TIME. PATIENTS IV FLUSHED IN LEFT HAND AND SL PER ORDER. PATIENT IS ON RA. PATIENT ONLY REPORTS SOB WITH AMBULATION. PATIENT PROVIDED WITH FRESH WATER. NO FURTHER NEEDS NOTED. CALL LIGHT IN REACH.
--- NOTE | 2022-05-23 21:37 | NUR ---
iv pump alarming, iv sl.iv wnl. pt up to br and back to bed. no other needs at this time. call light in reach.
--- NOTE | 2022-05-23 22:40 | NUR ---
PATIENT IS RESTING IN BED WITH EYES CLOSED, RR 19. CALL LIGHT AND BLEONGINGS ARE WITH IN REACH.
--- NOTE | 2022-05-24 00:10 | NUR ---
PATIENT IS RESTING IN BED WITH EYES CLSOED, RR 17. CALL LIGHT IN REACH. PATIENT REMAINS ON RA.
--- NOTE | 2022-05-24 02:22 | NUR ---
PATIENT IS RESTING IN BED WITH EYES CLOSED, RR 19. CALL LIGHT IN REACH.
--- NOTE | 2022-05-24 04:00 | NUR ---
PATIENT IS RESTING IN BED WITH EYES CLOSED, RR 16. CALL LIGHT IN REACH.
--- NOTE | 2022-05-24 06:17 | NUR ---
PATIENTS VITALS TAKEN AND RECORDED. INTAKE AND OUTPUT RECORDED. PATIENTS AM MEDS GIVEN PER ORDER. PATIENT REMAINS ON RA. PATIENT DENIES ANY FURTHER NEEDS. CALL LIGHT IN REACH.
--- NOTE | 2022-05-24 10:27 | NUR ---
PATIENT SITTING UP IN CHAIR, ALERT AND ORIENTED X4. PATIENT DENIES PAIN AND OR SHORTNESS OF BREATH THIS MORNING. PT REPORTS FEELING "VERY TIRED" THIS MORNING SHE DID NOT SLEEP WELL LAST NIGHT. IV SITE PATENT, VANCO INFUSING PER PROVIDER ORDER. PATIENT ENCOURAGED TO CALL IF SHE HAS NEEDS. CALL LIGHT WITHIN REACH OF PT.
--- NOTE | 2022-05-24 12:58 | NUR ---
PT IN CHAIR. VITALS AND IS AND OS COMPLETE. NO NEEDS AT THIS TIME. PRESENT IN ROOM. CALL LIGHT WITHIN REACH
--- NOTE | 2022-05-24 13:20 | NUR ---
REPORT RECEIVED FROM MONICA BOWDEN, PT IS CURRENTLY SITTING IN CHAIR, ON ROOM AIR, PT WAS EATING, NEEDS TO HAVE A WALK AROUND WITH PULSE OX TO TEST HER O2 SATS WITH ACTIVITY
--- NOTE | 2022-05-24 13:55 | NUR ---
in room to check on pt and check her sats with ambulation, per Dr Garcia. pt sats are 87-88% slowly up to 90% on finger oximeter. pt ambulated into bathroom to void and reports feeling "dizzy" and has to "sit down for a bit" respirations increased. pt and concerned about pt possibly going homw if she is still feeling "somewhat winded" informed Dr Garcia.
--- NOTE | 2022-05-24 14:22 | NUR ---
PT REQUESTING SOME MORE MEDICINE FOR HER COUGHING. PT GIVEN ROBITUSSIN AND TESSLON PER PRN ORDERS SEE EMAR. FAMILY IN ROOM WITH PT. SHE DENIES OTHER NEEDS. SABINA JAMAAL IN REACH.
--- NOTE | 2022-05-24 15:50 | NUR ---
PT IS SITTING IN THE RECLINER, HAS WATER ON TABLE. DENIES ANY NEEDS RIGHT NOW, REPORTS IMPROVEMENT IN COUGHING SYMPTOMS SICNE GETTING THE TESSALON AND ROBITUSSIN. CALL LIGHT IN REACH
--- NOTE | 2022-05-24 17:28 | NUR ---
PT AMBULATED INTO BATHROOM TO VOID, DID THIS WITHOUT DIFFICULTY. FELT "A LITTLE WEAK" UPON STANDING BUT THIS RN WAS STANDBY ASSIST WHILE PT WENT INTO BATHROOM. EMPTIED HAT. REFILLED PT'S WATER CUP. CALL LIGHT IS IN REACH PT IN RECLINER IT IS DINNER TIME.
--- NOTE | 2022-05-24 18:05 | NUR ---
PT HAS DINNER TRAY PT SITTING IN RECLINER APPEARS TO BE SOMEWHAT DOROWSY, EASILY AWAKENS, ENCOURAGED PT TO EAT SOME OF HER DINNER, WILL CHECK BACK. DENIES OTHER NEEDS. CALL LIGHT IN REACH.
--- NOTE | 2022-05-24 19:20 | NUR ---
RECEIVED REPORT FROM DAY SHIFT RN. PATIENT IS RESTING IN BED. VISTOR PRESENT IN THE ROOM. NO NEEDS NOTED. CALL LIGHT IN REACH.
--- NOTE | 2022-05-24 20:37 | NUR ---
PATIENT ASSESMENT COMPLETED. PATIENT ASSISTED TO TH BR A SBA. PATIENT SOB W/ACTIVITY. PATIENT ABLE TO VOID. PATIENT IS BACK IN BED RESTING. PATIENTS VITALS TAKEN AND RECORDED. INTAKE AND OUTPUT RECORDED. PATIENTS PM MEDS GIVEN PER ORDER. PATIENT RATES PAIN FROM COUGHING AT A 1/10 AND DENIES THE NEED FOR INTERVENTION AT THIS TIME. PATIENTS IV ABX INFUSING PER ORDER. PATIENT DENIES ANY FURTHER NEEDS. CALL LIGHT IN REACH.
--- NOTE | 2022-05-24 22:03 | NUR ---
PATIENT IS RESTING IN BED WITH EYES CLOSED, RR 19. IV ABX INFUSING PER ORDER. CALL LIGHT IN REACH. PATIENT REMAINS ON RA
--- NOTE | 2022-05-24 22:30 | NUR ---
PATIENT IS RESTING IN BED WITH EYES CLOSED, RR 18. IV ABX COMPLETED INFUSING PER ORDER. PATIENT IS NOW SL PER ORDER.
--- NOTE | 2022-05-24 23:11 | NUR ---
PATIENT REPORTS COUGH. PRN MEDICATION GIVEN PER ORDER. PATIENT DENIES ANY FURTHER NEEDS. CALL LIGHT IN REACH.
--- NOTE | 2022-05-25 00:05 | NUR ---
PATIENT IS RESTING IN RECLINER WITH EYES CLOSED, RR 18. CALL LIGHT IN REACH.
--- NOTE | 2022-05-25 00:18 | NUR ---
Helped patient to the bathroom. Brought patient a warm blanket and she is sitting up in chair.
--- NOTE | 2022-05-25 02:06 | NUR ---
PATIENT IS RESTING IN RECLINER WATCHING TV. PATIENT DENIES ANY NEEDS CALL LIGHT IN REACH.
--- NOTE | 2022-05-25 04:24 | NUR ---
PATIENT IS RESTING IN RECLINER WITH EYES CLOSED, RR 16. CALL LIGHT IN REACH.
--- NOTE | 2022-05-25 06:02 | NUR ---
PATIENT IS RESTING IN RECLINER. PATIENTS VITALS TAKEN AND RECORDED. INTAKE AND OUTPUT RECORDED. PATIENTS AM MEDS GIVEN PER ORDER. PATIENT REMAINS ON RA. PATIENT DENIES ANY NEEDS. CALL LIGHT IN REACH.
--- NOTE | 2022-05-25 07:33 | NUR ---
PATIENT SITTING UP IN CHAIR RESTING, EYES CLOSED, RESPIRATIONS NON LABORED. PATIENT HAS NO NOTABLE DISTRESS. PERSONAL SUPPLIES AND CALL LIGHT WITHIN REACH.
--- NOTE | 2022-05-25 08:05 | NUR ---
TESSALON PERLES 200MG PO ADMIN FOR REPORTS OF COUGH.
--- NOTE | 2022-05-25 10:01 | NUR ---
Patient sitting up in chair, alert and oriented x4. Patient denies shortness of breath, resirations non labored. Patient requesting to get up to have a bowel movement, even gait noted when up ambulating. Patient denies needs at this time, personal supplies and call light within reach.
--- NOTE | 2022-05-25 10:15 | NUR ---
PATIENT UP TO BATHROOM TO BM. PATIENT IN BED FOR ECHO.
--- NOTE | 2022-05-25 12:47 | NUR ---
Patient placed on tele per provider order. Patient ambulated in hallway, tolerated fair, got a bit short of breath towards the end of walk. Patient back to room, sp02 93% on room air post walk. Heart rate sustained in 80's, NSR while walking in hallway.
--- NOTE | 2022-05-25 19:15 | NUR ---
REPORT RECEIVED FROM DENNISE ANDERSON. PT SITTING UP IN CHAIR WITH LEGS ELEVATED. EYES CLOSED. RR EVEN AND UNLABORED. PT AWAKENS WHEN ADDRESSED. NO NEEDS REPORTED AT THIS TIME. CALL LIGHT IN REACH.
--- NOTE | 2022-05-25 20:32 | NUR ---
2007 IN TO ADMINISTER MEDICATIONS. PT SITTING UP IN CHAIR AND TAKES PO MEDICATIONS WITH NO ISSUES, SEE MAR. IV INFUSING WNL. VITALS COMPLETE LYNNE NGUYEN IN TO ASSIST PT WITH TOILETING. 2031 ASSESSMENT COMPLETE. CRACKLES IN RLL AND LLL. CLEAR IN RUL AND CAMERON. BOWEL TONES ACTIVE. PT REPORTS PAIN 0/10 AT THIS TIME. PT REQUESTING TO SIT UP IN BED A LITTLE HIGHER. HOB ELEVATED PER PT REQUEST. PT DENIES ANY OTHER NEEDS AT THIS TIME. CALL LIGHT IN REACH.
--- NOTE | 2022-05-25 22:50 | NUR ---
IN TO ANSWER CALL LIGHT. PTs IV PUMP ALARMING. IV INFUSION COMPLETE. IV FLUSHED WNL. PT REPORTS NO OTHER NEEDS AT THIS TIME. CALL LIGHT IN REACH.
--- NOTE | 2022-05-26 01:15 | NUR ---
PT REPORTS SHE JUST WAS UP AND TO THE RESTROOM. HAT IN TOILET EMPTIED AND OUTPUT RECORDED ON BOARD IN ROOM. PT REPORTS NO NEEDS AT THIS TIME. CALL LIGHT IN REACH.
--- NOTE | 2022-05-26 05:36 | NUR ---
IN TO ADMINISTER MEDICATIONS, SEE MAR. PT SITTING UP IN CHAIR AND TAKES PO MEDICATIONS WITH NO ISSUES. ASSESSMENT COMPLETE. LUNGS CLEAR IN RUL. CRACKLES RLL, CAMERON AND LLL. PT REPORTS NO PAIN AT THIS TIME. BOWEL TONES ACTIVE. PT REQUESTING WARM BLANKET AND PILLOW, WARM BLANKET AND PILLOW PROVIDED. VITALS AND I&Os COMPLETE. PT REPORTS NO OTHER NEEDS AT THIS TIME. CALL LIGHT IN REACH.
--- NOTE | 2022-05-26 07:10 | NUR ---
ASSUMING CARE OF PT. REPORT RECEIVED FROM OANH BOWDEN. SITTING ASLEEP IN CHAIR IN ROOM. CALL LIGHT WITHIN REACH AND PT NEEDED BELONGINGS AT BEDSIDE.
--- NOTE | 2022-05-26 08:50 | NUR ---
IN ROOM TO PROVIDE MORNING MEDICATION. DR MESA AT BEDSIDE DISCUSSING PLAN OF CARE WITH PT AND COMPLETING ASSESSMENT. DISCUSSED POTENTIAL DISCHARGE WITH PT. PT SITTING IN CHAIR IN ROOM WATCHING TV. CALL LIGHT WITHIN REACH.
--- NOTE | 2022-05-26 10:00 | NUR ---
Spoke with Nikole, she denies needs. States she has had a walker and cane in the past, but ended up giving them to friends who needed them. She denies needing and DME. She is getting her IV antibiotic. States she lives 30 [place] from [place] on [facility] [address]. She lives with her spouse and he will be with her and assist if needed. No needs for dc to home. May go home today after seeing hospitalist.
--- NOTE | 2022-05-26 10:50 | NUR ---
PT AT BEDSIDE TALKING WITH PT. PT SITTING IN CHAIR IN ROOM. RESPIRATIONS EVEN AND UNLABORED. CALL LIGHT AND PT BELONGINGS WITHIN REACH. PT DENIES NEEDS AT THIS TIME.
--- NOTE | 2022-05-26 12:43 | NUR ---
PATIENT'S ANTIBIOTIC FINISHED AND IS NOW SALINE LOCKED. LUNCH HAS BEEN DELIVERED AND PATIENT IS EATING WHILE VISTING WITH A MALE VISITOR. CALL LIGHT IN REACH AND PATIENT WILL CALL IF SHE NEEDS ANYTHING.
[2022-05-26] MEDS ORDERED: DOXYCYCLINE HY100 MG PO (12:50)
[2022-05-26] MEDS ORDERED: CEFDINIR300 MG PO (12:51)
[2022-05-26] MEDS ORDERED: ASPIRIN EC325 MG PO (12:53)
--- NOTE | 2022-05-26 12:59 | NUR ---
NEW DC ORDER GIVEN BY TO GO HOME. CALL LIGHT IN REACH.
== END 2022-05-26 13:45 | disposition home or self-care (01) | DRG 871 ==
LOC: ED 11:18 → CCU 13:58 → MS 13:58
PROVIDERS: ADMIT Internal Medicine; ATTEND Family Medicine
DX: A41.9 Sepsis, unspecified organism (principal); J15.9 Unspecified bacterial pneumonia; J96.01 Acute respiratory failure with hypoxia; Z20.822 Contact with and (suspected) exposure to COVID-19; I48.91 Unspecified atrial fibrillation; E87.6 Hypokalemia; E11.9 Type 2 diabetes mellitus without complications; G40.909 Epilepsy, unspecified, not intractable, without status epilepticus; E03.9 Hypothyroidism, unspecified; N32.81 Overactive bladder
CPT/HCPCS: 36415; 36600; 71045; 71046; 80048; 80053; 80156; 80202; 82803; 83036; 83605; 83735; 83880; 85025; 85060; 85610; 85730; 87040; 87070; 87205; 87502; 93005; 93010; 93306; 94640; 94660; A9270; C9803; J0456; J0696; J1650; J1815; J3370; J3475; J7040; J7060; U0003